=== PATIENT | female | born 1960 | race Caucasian/White ===

== ENCOUNTER → 2019-03-16 16:43 | Outpatient (CLI) | payer MEDICAID, SELFPAY ==
[2019-03-16 21:20] LABS: Amphetamine/Metha Screen,Urine Positive ng/mL (<1000); Barbiturates Screen,Urine Negative ng/mL (<200); Benzodiazepines Screen,Urine Negative ng/mL (<200); Cannabinoid Screen,Urine Negative ng/mL (<50); Cocaine Screen,Urine Negative ng/mL (<300); Methadone Screen,Urine Negative ng/mL (<300); Opiate Screen,Urine Positive ng/mL (<300); Phencyclidine Screen,Urine Negative ng/mL (<25)
== END ==
PROVIDERS: Visit Provider Emergency Medicine
DX: F90.9 Attention-deficit hyperactivity disorder, unspecified type (principal)
CPT/HCPCS: 80305

== ENCOUNTER → 2019-05-15 15:04 | Outpatient (CLI) | payer MEDICAID, SELFPAY ==
[2019-05-15 18:02] LABS: Amphetamine/Metha Screen,Urine Positive ng/mL (<1000); Barbiturates Screen,Urine Negative ng/mL (<200); Benzodiazepines Screen,Urine Negative ng/mL (<200); Cannabinoid Screen,Urine Negative ng/mL (<50); Cocaine Screen,Urine Negative ng/mL (<300); Methadone Screen,Urine Negative ng/mL (<300); Opiate Screen,Urine Negative ng/mL (<300); Phencyclidine Screen,Urine Negative ng/mL (<25)
== END ==
PROVIDERS: Visit Provider Emergency Medicine
DX: Z79.899 Other long term (current) drug therapy (principal)
CPT/HCPCS: 80305

== ENCOUNTER → 2019-09-02 13:34 | Outpatient (CLI) | payer MEDICAID, SELFPAY ==
[2019-09-02 14:03] LABS: Alanine Aminotransferase 22 U/L (12-78); Albumin Level 4.3 g/dl (3.5-5.0); Albumin/Globulin Ratio 1.2 (1.1-1.8); Alkaline Phosphatase 121 U/L (38-126); Aspartate Amino Transferase 32 U/L (14-36); Blood Urea Nitrogen 15 mg/dl (7-17); Calcium 9.5 mg/dl (8.4-10.2); Carbon Dioxide 32 mmol/L (22.0-30.0); Chloride 101 mmol/L (98-107); Estimated Glomerular Filt Rate 127 ml/min (>60); GFR (African American) 153 ML/MIN (>60); Globulin 3.7 g/dL (1.3-3.2); Glucose 124 mg/dl (74-100); HDL Cholesterol 42 mg/dl (40-60); Sodium 137 mmol/L (136-145); Triglycerides 288 mg/dl (30-150); VLDL Cholesterol 58 mg/dL (0-40)
[2019-09-02 14:05] LABS: Bilirubin,Total < 0.1 mg/dl (0.2-1.3)
[2019-09-02 14:22] LABS: Direct LDL Cholesterol 259.33 mg/dL (100-129); Free T4 (Free Thyroxine) 1.37 ng/dl (0.78-2.19)
[2019-09-02 14:25] LABS: Chol/HDL Ratio 8.4 (1-3.5); Cholesterol 351 mg/dl (140-200)
[2019-09-02 14:26] LABS: Basophils # 0.2 K/mm3 (0-0.2); Basophils % 1.6 % (0.1-2.0); Eosinophils # 0.4 K/mm3 (0.0-0.4); Eosinophils % 4.6 % (0.1-12.0); Hematocrit 47.8 % (37.0-47.0); Hemoglobin 14.6 g/dL (12.2-16.2); Lymphocytes # 2.6 K/mm3 (0.7-4.5); Lymphocytes % 28.5 % (10-50); Mean Corpuscular HGB Conc 30.5 g/dL (31.8-35.4); Mean Corpuscular Hemoglobin 30.4 pg (27.0-31.2); Mean Corpuscular Volume 99.8 fl (81-99); Mean Platelet Volume 10.2 fl (7.4-10.4); Monocytes # 0.6 K/mm3 (0.1-1.0); Monocytes % 6.2 % (1.7-9.3); Neutrophils # 5.4 K/mm3 (1.8-7.8); Neutrophils % 59.1 % (37.0-80.0); Platelet Count 291 K/mm3 (142-424); Red Blood Count 4.79 M/mm3 (4.20-5.40); Red Cell Distribution Width 13.5 % (11.5-17.5); White Blood Count 9.1 K/mm3 (4.8-10.8)
[2019-09-02 14:36] LABS: Thyroid Stimulating Hormone 3.81 uIU/mL (0.465-4.68)
[2019-09-03 11:39] LABS: Vitamin D 25 Hydroxy 25.4 ng/mL (30.0-100.0)
== END ==
PROVIDERS: Visit Provider Emergency Medicine
DX: E66.3 Overweight (principal); F90.9 Attention-deficit hyperactivity disorder, unspecified type; E55.9 Vitamin D deficiency, unspecified; Z79.899 Other long term (current) drug therapy
CPT/HCPCS: 80053; 80061; 82652; 84439; 84443; 85025

== ENCOUNTER → 2020-04-26 17:51 | Outpatient (CLI) | payer MEDICAID, SELFPAY | PROVIDERS: Visit Provider Emergency Medicine | DX: T81.41XA Infection following a procedure, superficial incisional surgical site, initial encounter (principal); M25.561 Pain in right knee | CPT/HCPCS: 87070; 87077; 87186; 87205 ==

== ENCOUNTER → 2020-06-22 18:38 | Outpatient (CLI) | payer MEDICAID, SELFPAY ==
[2020-06-22 19:33] LABS: Amphetamine/Metha Screen,Urine Positive ng/ml (<1000)
[2020-06-22 19:34] LABS: Barbiturates Screen,Urine Negative ng/ml (<200); Benzodiazepines Screen,Urine Negative ng/ml (<200)
[2020-06-22 19:35] LABS: Cannabinoid Screen,Urine Negative ng/ml (<50); Cocaine Screen,Urine Negative ng/ml (<300)
[2020-06-22 19:36] LABS: Methadone Screen,Urine Negative ng/ml (<300)
[2020-06-22 19:37] LABS: Opiate Screen,Urine Negative ng/ml (<300)
[2020-06-22 19:39] LABS: Phencyclidine Screen,Urine Negative ng/ml (<25)
== END ==
PROVIDERS: Visit Provider Emergency Medicine
DX: Z79.899 Other long term (current) drug therapy (principal)
CPT/HCPCS: 80305

== ENCOUNTER → 2020-08-24 13:19 | Outpatient (CLI) | payer MEDICAID, SELFPAY ==
[2020-08-24 14:21] LABS: Amphetamine/Metha Screen,Urine Positive ng/ml (<1000)
[2020-08-24 14:22] LABS: Barbiturates Screen,Urine Negative ng/ml (<200)
[2020-08-24 14:23] LABS: Benzodiazepines Screen,Urine Negative ng/ml (<200)
[2020-08-24 14:24] LABS: Cannabinoid Screen,Urine Negative ng/ml (<50)
[2020-08-24 14:25] LABS: Cocaine Screen,Urine Negative ng/ml (<300); Methadone Screen,Urine Negative ng/ml (<300)
[2020-08-24 14:26] LABS: Opiate Screen,Urine Negative ng/ml (<300)
[2020-08-24 14:27] LABS: Phencyclidine Screen,Urine Negative ng/ml (<25)
== END ==
PROVIDERS: Visit Provider Emergency Medicine
DX: Z79.899 Other long term (current) drug therapy (principal); F90.9 Attention-deficit hyperactivity disorder, unspecified type
CPT/HCPCS: 80305

== ENCOUNTER → 2020-10-21 17:37 | Outpatient (CLI) | payer MEDICAID, SELFPAY ==
[2020-10-21 18:30] LABS: Amphetamine/Metha Screen,Urine Positive ng/ml (<1000)
[2020-10-21 18:31] LABS: Barbiturates Screen,Urine Negative ng/ml (<200)
[2020-10-21 18:32] LABS: Benzodiazepines Screen,Urine Negative ng/ml (<200); Cannabinoid Screen,Urine Negative ng/ml (<50)
[2020-10-21 18:33] LABS: Cocaine Screen,Urine Negative ng/ml (<300)
[2020-10-21 18:34] LABS: Methadone Screen,Urine Negative ng/ml (<300); Opiate Screen,Urine Negative ng/ml (<300)
[2020-10-21 18:35] LABS: Phencyclidine Screen,Urine Negative ng/ml (<25)
== END ==
PROVIDERS: Visit Provider Emergency Medicine
DX: Z79.899 Other long term (current) drug therapy (principal)
CPT/HCPCS: 80305

== ENCOUNTER → 2020-12-20 17:06 | Outpatient (CLI) | payer MEDICAID, SELFPAY ==
[2020-12-20 18:49] LABS: Alanine Aminotransferase 24 U/L (12-78); Albumin Level 4.2 g/dl (3.5-5.0); Alkaline Phosphatase 118 U/L (38-126); Anion Gap 15.6 mEq/L (5-15); Aspartate Amino Transferase 37 U/L (14-36); Bilirubin,Total 0.5 mg/dl (0.2-1.3); Blood Urea Nitrogen 15 mg/dl (7-17); Calcium 9.1 mg/dl (8.4-10.2); Carbon Dioxide 25 mmol/L (22.0-30.0); Chloride 103 mmol/L (98-107); Chol/HDL Ratio 6.6 (1-3.5); Cholesterol 258 mg/dl (140-200); Estimated Glomerular Filt Rate 163 ml/min (>60); GFR (African American) 197 ML/MIN (>60); Globulin 4.2 g/dL (1.3-3.2); Glucose 114 mg/dl (74-100); HDL Cholesterol 39 mg/dl (40-60); Potassium 4.6 mmoL/L (3.5-5.1); Sodium 139 mmol/L (136-145); Total Protein,Serum 8.4 g/dl (6.3-8.2); Triglycerides 235 mg/dl (30-150); VLDL Cholesterol 47 mg/dL (0-40)
[2020-12-20 19:01] LABS: Direct LDL Cholesterol 162.59 mg/dL (100-129)
[2020-12-20 19:06] LABS: 25-OH Vitamin D, Total 58.7 ng/mL (30-100)
[2020-12-20 19:08] LABS: Free T4 (Free Thyroxine) 1.77 ng/dl (0.78-2.19)
[2020-12-20 19:20] LABS: Thyroid Stimulating Hormone 0.75 uIU/mL (0.465-4.68)
[2020-12-20 20:32] LABS: Amphetamine/Metha Screen,Urine Positive ng/ml (<1000)
[2020-12-20 20:33] LABS: Barbiturates Screen,Urine Negative ng/ml (<200)
[2020-12-20 20:35] LABS: Benzodiazepines Screen,Urine Negative ng/ml (<200); Cannabinoid Screen,Urine Positive ng/ml (<50)
[2020-12-20 20:36] LABS: Cocaine Screen,Urine Negative ng/ml (<300)
[2020-12-20 20:37] LABS: Methadone Screen,Urine Negative ng/ml (<300); Opiate Screen,Urine Negative ng/ml (<300)
[2020-12-20 20:38] LABS: Phencyclidine Screen,Urine Negative ng/ml (<25)
== END ==
PROVIDERS: Visit Provider Emergency Medicine
DX: F90.9 Attention-deficit hyperactivity disorder, unspecified type (principal); E55.9 Vitamin D deficiency, unspecified; E66.3 Overweight; E78.5 Hyperlipidemia, unspecified; Z79.899 Other long term (current) drug therapy
CPT/HCPCS: 80053; 80061; 80305; 82306; 84439; 84443

== ENCOUNTER → 2021-03-06 14:56 | Outpatient (CLI) | payer MEDICAID, SELFPAY ==
[2021-03-06 19:43] LABS: Amphetamine/Metha Screen,Urine Positive ng/ml (<1000)
[2021-03-06 19:44] LABS: Barbiturates Screen,Urine Negative ng/ml (<200); Benzodiazepines Screen,Urine Negative ng/ml (<200)
[2021-03-06 19:45] LABS: Cannabinoid Screen,Urine Positive ng/ml (<50)
[2021-03-06 19:46] LABS: Cocaine Screen,Urine Negative ng/ml (<300); Methadone Screen,Urine Negative ng/ml (<300)
[2021-03-06 19:47] LABS: Opiate Screen,Urine Negative ng/ml (<300)
[2021-03-06 19:48] LABS: Phencyclidine Screen,Urine Negative ng/ml (<25)
== END ==
PROVIDERS: Visit Provider Emergency Medicine
DX: F90.9 Attention-deficit hyperactivity disorder, unspecified type (principal)
CPT/HCPCS: 80305

== ENCOUNTER → 2021-05-05 14:18 | Outpatient (CLI) | payer MEDICAID, SELFPAY ==
[2021-05-05 16:34] LABS: Amphetamine/Metha Screen,Urine Positive ng/ml (<1000); Barbiturates Screen,Urine Negative ng/ml (<200)
[2021-05-05 16:36] LABS: Benzodiazepines Screen,Urine Negative ng/ml (<200)
[2021-05-05 16:37] LABS: Cannabinoid Screen,Urine Positive ng/ml (<50); Cocaine Screen,Urine Negative ng/ml (<300)
[2021-05-05 16:38] LABS: Methadone Screen,Urine Negative ng/ml (<300)
[2021-05-05 16:39] LABS: Opiate Screen,Urine Positive ng/ml (<300); Phencyclidine Screen,Urine Negative ng/ml (<25)
== END ==
PROVIDERS: Visit Provider Emergency Medicine
DX: Z79.899 Other long term (current) drug therapy (principal)
CPT/HCPCS: 80305

== ENCOUNTER → 2021-06-30 15:10 | Outpatient (CLI) | payer MEDICAID, SELFPAY ==
[2021-06-30 15:33] LABS: Amphetamine/Metha Screen,Urine Positive ng/ml (<1000)
[2021-06-30 15:34] LABS: Barbiturates Screen,Urine Negative ng/ml (<200)
[2021-06-30 15:35] LABS: Benzodiazepines Screen,Urine Negative ng/ml (<200); Cannabinoid Screen,Urine Positive ng/ml (<50)
[2021-06-30 15:36] LABS: Cocaine Screen,Urine Negative ng/ml (<300)
[2021-06-30 15:37] LABS: Methadone Screen,Urine Negative ng/ml (<300); Opiate Screen,Urine Positive ng/ml (<300)
[2021-06-30 15:49] LABS: Phencyclidine Screen,Urine Negative ng/ml (<25)
== END ==
PROVIDERS: Visit Provider Emergency Medicine
DX: Z79.899 Other long term (current) drug therapy (principal)
CPT/HCPCS: 80305

== ENCOUNTER → 2021-08-28 11:01 | Outpatient (CLI) | payer MEDICAID, SELFPAY ==
[2021-08-28 14:50] LABS: Amphetamine/Metha Screen,Urine Negative ng/ml (<1000)
[2021-08-28 14:51] LABS: Barbiturates Screen,Urine Negative ng/ml (<200); Benzodiazepines Screen,Urine Negative ng/ml (<200)
[2021-08-28 14:52] LABS: Cannabinoid Screen,Urine Positive ng/ml (<50); Cocaine Screen,Urine Negative ng/ml (<300)
[2021-08-28 14:53] LABS: Methadone Screen,Urine Negative ng/ml (<300)
[2021-08-28 14:54] LABS: Opiate Screen,Urine Positive ng/ml (<300); Phencyclidine Screen,Urine Negative ng/ml (<25)
== END ==
PROVIDERS: PCP Emergency Medicine; Visit Provider Emergency Medicine
DX: Z79.899 Other long term (current) drug therapy (principal)
CPT/HCPCS: 80305

== ENCOUNTER → 2021-10-18 13:53 | Outpatient (CLI) | payer MEDICAID, SELFPAY ==
[2021-10-18 14:02] LABS: Amphetamine/Metha Screen,Urine Positive ng/ml (<1000); Barbiturates Screen,Urine Negative ng/ml (<200)
[2021-10-18 14:03] LABS: Benzodiazepines Screen,Urine Negative ng/ml (<200)
[2021-10-18 14:04] LABS: Cannabinoid Screen,Urine Positive ng/ml (<50); Methadone Screen,Urine Negative ng/ml (<300)
[2021-10-18 14:05] LABS: Cocaine Screen,Urine Negative ng/ml (<300)
[2021-10-18 14:06] LABS: Opiate Screen,Urine Positive ng/ml (<300); Phencyclidine Screen,Urine Negative ng/ml (<25)
[2021-10-19 22:08] LABS: Neisseria gonorrhoeae, NAA Negative (Negative)
== END ==
PROVIDERS: PCP Emergency Medicine; Visit Provider Emergency Medicine
DX: Z79.899 Other long term (current) drug therapy (principal); L29.8 Other pruritus
CPT/HCPCS: 80305; 87491; 87591

== ENCOUNTER → 2021-12-15 14:30 | Outpatient (CLI) | payer MEDICARE, MEDICAID, SELFPAY ==
[2021-12-15 19:13] LABS: Amphetamine/Metha Screen,Urine Positive ng/ml (<1000)
[2021-12-15 19:15] LABS: Barbiturates Screen,Urine Negative ng/ml (<200)
[2021-12-15 19:16] LABS: Benzodiazepines Screen,Urine Negative ng/ml (<200); Cannabinoid Screen,Urine Positive ng/ml (<50)
[2021-12-15 19:18] LABS: Cocaine Screen,Urine Negative ng/ml (<300); Methadone Screen,Urine Negative ng/ml (<300)
[2021-12-15 19:19] LABS: Opiate Screen,Urine Positive ng/ml (<300)
[2021-12-15 19:25] LABS: Phencyclidine Screen,Urine Negative ng/ml (<25)
== END ==
PROVIDERS: PCP Emergency Medicine; Visit Provider Emergency Medicine
DX: Z79.899 Other long term (current) drug therapy (principal)
CPT/HCPCS: 80305

== ENCOUNTER 2022-02-09 01:04 | Emergency (ER) | payer MEDICARE, MEDICAID, SELFPAY ==
[2022-02-09 01:05] VITALS: BP 160/93; PULSE 94; RESP 18; TEMP 36.8; O2SAT 95; BMI 26.1
--- NOTE | 2022-02-09 01:35 | HMH.EDDENT ---
Discharge Plan Disposition Patient Disposition: Home, Self-Care Prescriptions Prescriptions: New cephalexin [cephalexin] 500 mg capsule 500 mg PO TID Qty: 30 0RF No Action albuterol sulfate 90 mcg/actuation HFA aerosol inhaler INHALATION levothyroxine 137 mcg tablet PO DAILY atorvastatin 10 mg tablet See Rx Instructions .ROUTE .COMPLEX Qty: 90 2RF Dose Instruction: TAKE 1 TABLET BY MOUTH AT BEDTIME Rx Instructions: TAKE 1 TABLET BY MOUTH AT BEDTIME cholecalciferol (vitamin D3) 25 mcg (1,000 unit) capsule 1,000 unit PO DAILY Qty: 90 1RF ergocalciferol (vitamin D2) 1,250 mcg (50,000 unit) capsule See Rx Instructions .ROUTE .COMPLEX Qty: 8 0RF Dose Instruction: TAKE 1 CAPSULE BY MOUTH ONCE WEEKLY Rx Instructions: TAKE 1 CAPSULE BY MOUTH ONCE WEEKLY lisinopril 10 mg tablet See Rx Instructions .ROUTE .COMPLEX Qty: 30 1RF Dose Instruction: TAKE 1 TABLET BY MOUTH EVERY DAY Rx Instructions: TAKE 1 TABLET BY MOUTH EVERY DAY metoprolol succinate 25 mg tablet extended release 24 hr See Rx Instructions .ROUTE .COMPLEX Qty: 90 3RF Dose Instruction: TAKE 1 TABLET BY MOUTH EVERY DAY Rx Instructions: TAKE 1 TABLET BY MOUTH EVERY DAY nicotine 21 mg/24 hr patch 24 hour See Rx Instructions .ROUTE .COMPLEX Qty: 28 0RF Dose Instruction: APPLY 1 PATCH TO SKIN DAILY (REMOVE OLD PATCH) Rx Instructions: APPLY 1 PATCH TO SKIN DAILY (REMOVE OLD PATCH) trazodone 100 mg tablet See Rx Instructions .ROUTE .COMPLEX Qty: 180 0RF Dose Instruction: TAKE 2 TABLETS BY MOUTH AT BEDTIME Rx Instructions: TAKE 2 TABLETS BY MOUTH AT BEDTIME Anoro Ellipta 62.5-25 mcg/actuation blister with device See Rx Instructions .ROUTE .COMPLEX Qty: 60 0RF Dose Instruction: TAKE 1 INHALATION BY MOUTH ONCE DAILY Rx Instructions: TAKE 1 INHALATION BY MOUTH ONCE DAILY gabapentin 100 mg capsule 100 mg PO HS Qty: 30 1RF dextroamphetamine-amphetamine [Adderall] 20 mg tablet 20 mg PO TID Qty: 90 0RF Rx Instructions: administer doses at least 4-6 hours apart oxycodone 10 mg tablet 10 mg PO QID Qty: 120 0RF Referrals Follow up/Referrals: Campos Harris MD [Primary Care Provider] - See instructions Clinical Impressions Clinical Impression: Pain, dental, Dental infection Instructions Patient Instructions: DI for Dental Pain Discharge ED Provider: Campos Harris Dental HPI General Chief complaint: Dental/Oral Stated complaint: Toothache Time Seen by Provider: 02/09/22 01:35 Mode of Arrival: Ambulatory Source of Information: Patient and Medical Record Limitations: No Limitations Description of Symptoms (Recalled from ER Triage Doc. by RN): Pt c/o left lower tooth abcess causing pain that radiates into her jaw and ear. Pt endorses nausea. She denies fevers, vomiting, diarrhea, aches. History of Present Illness HPI Narrative: acute lt lower dental pain with swelling MD Complaint: tooth pain Onset (ago): day(s) Severity: moderate Relieving factors: NSAIDs and prescription analgesics Exacerbating factors: chewing and drinking fluids Context: history of dental caries Associated symptoms: gum swelling Treatment prior to arrival: oral analgesic Related Data Home Medications Medication Instructions Recorded Confirmed albuterol sulfate 90 mcg/actuation inhalation 12/30/19 12/15/21 aerosol inhaler levothyroxine 137 mcg tablet mcg PO DAILY 04/26/20 12/15/21 Previous Rx's Medication Instructions Recorded atorvastatin 10 mg tablet See Rx Instructions .Route 12/26/21 .COMPLEX #90 tabs cholecalciferol (vitamin D3) 25 1,000 unit PO DAILY #90 caps 12/26/21 mcg (1,000 unit) capsule dextroamphetamine-amphetamine 20 20 mg PO TID #90 tabs 12/26/21 mg tablet (Adderall) ergocalciferol (vitamin D2) 1,250 See Rx Instructions .Route 12/26/21 mcg (50,000 unit) capsule .COMPLEX #8
[2022-02-09 02:18] VITALS: BP 141/84; PULSE 85; RESP 18; TEMP 36.6; O2SAT 94
== END 2022-02-09 02:23 | disposition home or self-care (01) ==
PROVIDERS: Emergency Provider Emergency Medicine; PCP Emergency Medicine
DX: K04.7 Periapical abscess without sinus (principal)
CPT/HCPCS: 96365; 96375; 99284; J0696

== ENCOUNTER → 2022-02-13 14:25 | Outpatient (CLI) | payer MEDICARE, MEDICAID, SELFPAY ==
[2022-02-13 19:03] LABS: Barbiturates Screen,Urine Negative ng/ml (<200)
[2022-02-13 19:04] LABS: Benzodiazepines Screen,Urine Negative ng/ml (<200)
[2022-02-13 19:05] LABS: Cannabinoid Screen,Urine Positive ng/ml (<50); Cocaine Screen,Urine Negative ng/ml (<300)
[2022-02-13 19:06] LABS: Methadone Screen,Urine Negative ng/ml (<300)
[2022-02-13 19:07] LABS: Opiate Screen,Urine Positive ng/ml (<300); Phencyclidine Screen,Urine Negative ng/ml (<25)
[2022-02-13 19:49] LABS: Amphetamine/Metha Screen,Urine Positive ng/ml (<1000)
== END ==
PROVIDERS: PCP Emergency Medicine; Visit Provider Emergency Medicine
DX: Z79.899 Other long term (current) drug therapy (principal)
CPT/HCPCS: 80305

== ENCOUNTER → 2022-04-04 17:07 | Outpatient (CLI) | payer MEDICARE, MEDICAID, SELFPAY ==
[2022-04-04 19:01] LABS: Amphetamine/Metha Screen,Urine Positive ng/ml (<1000); Barbiturates Screen,Urine Negative ng/ml (<200)
[2022-04-04 19:02] LABS: Benzodiazepines Screen,Urine Negative ng/ml (<200); Cannabinoid Screen,Urine Positive ng/ml (<50)
[2022-04-04 19:03] LABS: Cocaine Screen,Urine Negative ng/ml (<300)
[2022-04-04 19:04] LABS: Methadone Screen,Urine Negative ng/ml (<300); Opiate Screen,Urine Positive ng/ml (<300)
[2022-04-04 19:06] LABS: Phencyclidine Screen,Urine Negative ng/ml (<25)
== END ==
PROVIDERS: PCP Emergency Medicine; Visit Provider Emergency Medicine
DX: Z79.899 Other long term (current) drug therapy (principal)
CPT/HCPCS: 80305

== ENCOUNTER → 2022-05-30 16:50 | Outpatient (CLI) | payer MEDICARE, MEDICAID, SELFPAY ==
[2022-05-30 18:40] LABS: Amphetamine/Metha Screen,Urine Positive ng/ml (<1000)
[2022-05-30 18:41] LABS: Barbiturates Screen,Urine Negative ng/ml (<200); Benzodiazepines Screen,Urine Negative ng/ml (<200)
[2022-05-30 18:42] LABS: Cannabinoid Screen,Urine Negative ng/ml (<50); Cocaine Screen,Urine Negative ng/ml (<300)
[2022-05-30 18:43] LABS: Methadone Screen,Urine Negative ng/ml (<300)
[2022-05-30 18:44] LABS: Opiate Screen,Urine Positive ng/ml (<300); Phencyclidine Screen,Urine Negative ng/ml (<25)
== END ==
PROVIDERS: PCP Emergency Medicine; Visit Provider Emergency Medicine
DX: Z79.899 Other long term (current) drug therapy (principal)
CPT/HCPCS: 80305

== ENCOUNTER → 2022-08-06 23:08 | Outpatient (CLI) | payer MEDICARE, MEDICAID, SELFPAY ==
[2022-08-06 19:46] LABS: Benzodiazepines Screen,Urine Negative ng/ml (<200)
[2022-08-06 19:47] LABS: Amphetamine/Metha Screen,Urine Positive ng/ml (<1000); Barbiturates Screen,Urine Negative ng/ml (<200)
[2022-08-06 19:48] LABS: Cannabinoid Screen,Urine Negative ng/ml (<50)
[2022-08-06 19:49] LABS: Cocaine Screen,Urine Negative ng/ml (<300); Methadone Screen,Urine Negative ng/ml (<300)
[2022-08-06 19:50] LABS: Opiate Screen,Urine Positive ng/ml (<300); Phencyclidine Screen,Urine Negative ng/ml (<25)
== END ==
PROVIDERS: PCP Emergency Medicine; Visit Provider Emergency Medicine
DX: Z79.899 Other long term (current) drug therapy (principal)
CPT/HCPCS: 80305

== ENCOUNTER → 2022-10-02 18:54 | Outpatient (CLI) | payer MEDICARE, MEDICAID, SELFPAY ==
[2022-10-02 20:08] LABS: Basophils # 0.1 K/mm3 (0-0.2); Basophils % 0.5 % (0.1-2.0); Eosinophils # 0.2 K/mm3 (0.0-0.4); Eosinophils % 1.9 % (0.1-12.0); Hematocrit 49.1 % (37.0-47.0); Hemoglobin 15.8 g/dL (12.2-16.2); Lymphocytes # 3.3 K/mm3 (0.7-4.5); Mean Corpuscular HGB Conc 32.2 g/dL (31.8-35.4); Mean Corpuscular Hemoglobin 30.5 pg (27.0-31.2); Mean Corpuscular Volume 94.6 fl (81-99); Mean Platelet Volume 10.9 fl (7.4-10.4); Monocytes # 0.6 K/mm3 (0.1-1.0); Monocytes % 6.1 % (1.7-9.3); Neutrophils # 5.1 K/mm3 (1.8-7.8); Neutrophils % 55.5 % (37.0-80.0); Platelet Count 260 K/mm3 (142-424); Red Blood Count 5.19 M/mm3 (4.20-5.40); White Blood Count 9.2 K/mm3 (4.8-10.8)
[2022-10-02 20:28] LABS: Alanine Aminotransferase 24 U/L (12-78); Albumin Level 4.3 g/dl (3.5-5.0); Albumin/Globulin Ratio 1.2 (1.1-1.8); Alkaline Phosphatase 102 U/L (38-126); Anion Gap 14.2 mEq/L (5-15); Aspartate Amino Transferase 34 U/L (14-36); Bilirubin,Total 0.4 mg/dl (0.2-1.3); Calcium 9.2 mg/dl (8.4-10.2); Carbon Dioxide 32 mmol/L (22.0-30.0); Chloride 98 mmol/L (98-107); Cholesterol 244 mg/dl (140-200); Globulin 3.5 g/dL (1.3-3.2); Glucose 111 mg/dl (74-100); HDL Cholesterol 35 mg/dl (40-60); Potassium 4.2 mmoL/L (3.5-5.1); Sodium 140 mmol/L (136-145); Total Protein,Serum 7.8 g/dl (6.3-8.2); Triglycerides 168 mg/dl (30-150); VLDL Cholesterol 34 mg/dL (0-40)
[2022-10-02 20:32] LABS: Blood Urea Nitrogen 12 mg/dl (7-17); Estimated Glomerular Filt Rate 125 ml/min (>60); GFR (African American) 151 ML/MIN (>60)
[2022-10-02 20:39] LABS: Direct LDL Cholesterol 159.21 mg/dL (100-129)
[2022-10-02 20:44] LABS: Free T4 (Free Thyroxine) 1.94 ng/dl (0.78-2.19)
[2022-10-02 20:46] LABS: 25-OH Vitamin D, Total 60.6 ng/mL (30-100)
[2022-10-02 21:01] LABS: Hemoglobin A1C 5.9 % (4.0-6.0)
[2022-10-02 21:09] LABS: Amphetamine/Metha Screen,Urine Positive ng/ml (<1000)
[2022-10-02 22:50] LABS: Barbiturates Screen,Urine Negative ng/ml (<200)
[2022-10-02 22:51] LABS: Benzodiazepines Screen,Urine Negative ng/ml (<200); Cannabinoid Screen,Urine Negative ng/ml (<50)
[2022-10-02 22:52] LABS: Cocaine Screen,Urine Negative ng/ml (<300)
[2022-10-02 22:53] LABS: Methadone Screen,Urine Negative ng/ml (<300); Opiate Screen,Urine Positive ng/ml (<300)
[2022-10-02 22:54] LABS: Phencyclidine Screen,Urine Negative ng/ml (<25)
[2022-10-04 22:18] LABS: Neisseria gonorrhoeae, NAA Negative (Negative)
== END ==
PROVIDERS: PCP Emergency Medicine; Visit Provider Emergency Medicine
DX: E55.9 Vitamin D deficiency, unspecified (principal); R82.90 Unspecified abnormal findings in urine; E03.9 Hypothyroidism, unspecified; Z79.899 Other long term (current) drug therapy
CPT/HCPCS: 80053; 80061; 80305; 82306; 83036; 84439; 84443; 85025; 87086; 87491; 87591

== ENCOUNTER → 2022-11-21 23:21 | Outpatient (CLI) | payer MEDICARE, MEDICAID, SELFPAY ==
[2022-11-21 22:05] LABS: Amphetamine/Metha Screen,Urine Positive ng/ml (<1000)
[2022-11-21 22:06] LABS: Barbiturates Screen,Urine Negative ng/ml (<200); Benzodiazepines Screen,Urine Negative ng/ml (<200)
[2022-11-21 22:07] LABS: Cannabinoid Screen,Urine Negative ng/ml (<50); Cocaine Screen,Urine Negative ng/ml (<300)
[2022-11-21 22:08] LABS: Methadone Screen,Urine Negative ng/ml (<300)
[2022-11-21 22:09] LABS: Opiate Screen,Urine Positive ng/ml (<300); Phencyclidine Screen,Urine Negative ng/ml (<25)
== END ==
LOC: LAB.DROPOF 23:21
PROVIDERS: PCP Emergency Medicine; Visit Provider Emergency Medicine
DX: Z79.899 Other long term (current) drug therapy (principal)
CPT/HCPCS: 80305

== ENCOUNTER → 2023-01-10 09:04 | Outpatient (CLI) | payer MEDICARE, MEDICAID, SELFPAY ==
--- NOTE | 2023-01-10 09:04 | US_ITS ---
FINAL REPORT TECHNIQUE: Sonographic images of the right upper quadrant were obtained. CLINICAL HISTORY: abdominal pain COMPARISON: None FINDINGS: PANCREAS: Not well visualized secondary to overlying bowel gas. LIVER: Homogeneous. No focal hepatic lesion. No intrahepatic biliary ductal dilatation. GALLBLADDER: No gallstones. No gallbladder wall thickening or pericholecystic fluid. COMMON DUCT: 8 mm. Mildly dilated for age. RIGHT KIDNEY: The right kidney measures 10.6 cm. There is no hydronephrosis, mass, or stone. FREE FLUID: None. IMPRESSION: Mild common duct dilatation. Consider MRCP for further evaluation. Reviewed, Interpreted and Dictated by Jaylyn Aguilar MD Transcribed by Eugenia Keith Authenticated and [facility]
== END ==
PROVIDERS: PCP Emergency Medicine; Visit Provider Emergency Medicine
DX: R10.9 Unspecified abdominal pain (principal)
CPT/HCPCS: 76705

== ENCOUNTER → 2023-01-18 09:32 | Outpatient (CLI) | payer MEDICARE, MEDICAID, SELFPAY ==
[2023-01-18 19:17] LABS: Barbiturates Screen,Urine Negative ng/ml (<200)
[2023-01-18 19:18] LABS: Benzodiazepines Screen,Urine Negative ng/ml (<200)
[2023-01-18 19:19] LABS: Cannabinoid Screen,Urine Negative ng/ml (<50)
[2023-01-18 19:20] LABS: Cocaine Screen,Urine Negative ng/ml (<300)
[2023-01-18 19:22] LABS: Methadone Screen,Urine Negative ng/ml (<300); Opiate Screen,Urine Positive ng/ml (<300)
[2023-01-18 19:23] LABS: Phencyclidine Screen,Urine Negative ng/ml (<25)
[2023-01-18 20:05] LABS: Amphetamine/Metha Screen,Urine Positive ng/ml (<1000)
== END ==
PROVIDERS: Emergency Medicine; PCP Physician Assistant; Visit Provider Physician Assistant
DX: R10.9 Unspecified abdominal pain (principal); Z79.899 Other long term (current) drug therapy
CPT/HCPCS: 80305

== ENCOUNTER → 2023-03-18 23:49 | Outpatient (CLI) | payer MEDICARE, MEDICAID, SELFPAY ==
[2023-03-18 18:37] LABS: Basophils # 0.1 K/mm3 (0-0.2); Basophils % 0.6 % (0.1-2.0); Eosinophils # 0.3 K/mm3 (0.0-0.4); Eosinophils % 3.6 % (0.1-12.0); Hematocrit 48.6 % (37.0-47.0); Hemoglobin 15.7 g/dL (12.2-16.2); Lymphocytes # 2.9 K/mm3 (0.7-4.5); Lymphocytes % 31.7 % (10-50); Mean Corpuscular HGB Conc 32.4 g/dL (31.8-35.4); Mean Corpuscular Hemoglobin 31.8 pg (27.0-31.2); Mean Platelet Volume 10.9 fl (7.4-10.4); Monocytes # 0.6 K/mm3 (0.1-1.0); Monocytes % 6.6 % (1.7-9.3); Neutrophils # 5.2 K/mm3 (1.8-7.8); Neutrophils % 57.6 % (37.0-80.0); Platelet Count 277 K/mm3 (142-424); Red Blood Count 4.96 M/mm3 (4.20-5.40); White Blood Count 9.1 K/mm3 (4.8-10.8)
[2023-03-18 19:14] LABS: Alanine Aminotransferase 29 U/L (12-78); Albumin/Globulin Ratio 1.1 (1.1-1.8); Alkaline Phosphatase 119 U/L (38-126); Aspartate Amino Transferase 32 U/L (14-36); Bilirubin,Total 0.3 mg/dl (0.2-1.3); Blood Urea Nitrogen 12 mg/dl (7-17); Calcium 8.7 mg/dl (8.4-10.2); Carbon Dioxide 29 mmol/L (22.0-30.0); Chloride 104 mmol/L (98-107); Chol/HDL Ratio 6.8 (1-3.5); Cholesterol 224 mg/dl (140-200); Estimated Glomerular Filt Rate 125 ml/min (>60); GFR (African American) 151 ML/MIN (>60); Globulin 3.5 g/dL (1.3-3.2); Glucose 118 mg/dl (74-100); HDL Cholesterol 33 mg/dl (40-60); Sodium 138 mmol/L (136-145); Total Protein,Serum 7.5 g/dl (6.3-8.2); Triglycerides 201 mg/dl (30-150); VLDL Cholesterol 40 mg/dL (0-40)
[2023-03-18 19:25] LABS: Direct LDL Cholesterol 149.73 mg/dL (100-129)
[2023-03-18 19:44] LABS: Thyroid Stimulating Hormone 0.15 uIU/mL (0.465-4.68)
[2023-03-18 19:58] LABS: Creatinine,Urine Random 60 mg/dL (Not Estab.)
[2023-03-18 20:02] LABS: Benzodiazepines Screen,Urine Negative ng/ml (<200)
[2023-03-18 20:03] LABS: Barbiturates Screen,Urine Negative ng/ml (<200)
[2023-03-18 20:05] LABS: Cannabinoid Screen,Urine Negative ng/ml (<50); Cocaine Screen,Urine Negative ng/ml (<300); Microalbumin < 6.000 mg/L (0-16.7)
[2023-03-18 20:06] LABS: Methadone Screen,Urine Negative ng/ml (<300)
[2023-03-18 20:07] LABS: Opiate Screen,Urine Positive ng/ml (<300)
[2023-03-18 20:08] LABS: Phencyclidine Screen,Urine Negative ng/ml (<25)
[2023-03-18 20:11] LABS: Anion Gap 9.3 mEq/L (5-15); Potassium 4.3 mmoL/L (3.5-5.1)
[2023-03-18 20:21] LABS: Amphetamine/Metha Screen,Urine Positive ng/ml (<1000)
== END ==
PROVIDERS: PCP Internal Medicine; Visit Provider Internal Medicine
DX: E03.9 Hypothyroidism, unspecified (principal); E55.9 Vitamin D deficiency, unspecified; E78.5 Hyperlipidemia, unspecified; Z79.899 Other long term (current) drug therapy
CPT/HCPCS: 80053; 80061; 80305; 82043; 82570; 84443; 85025

== ENCOUNTER → 2023-04-01 13:03 | Outpatient (CLI) | payer MEDICARE, SELFPAY ==
[2023-04-01 21:38] LABS: Barbiturates Screen,Urine Negative ng/ml (<200); Cannabinoid Screen,Urine Negative ng/ml (<50)
[2023-04-01 21:39] LABS: Benzodiazepines Screen,Urine Negative ng/ml (<200)
[2023-04-01 21:40] LABS: Methadone Screen,Urine Negative ng/ml (<300)
[2023-04-01 21:45] LABS: Opiate Screen,Urine Positive ng/ml (<300)
[2023-04-01 21:46] LABS: Cocaine Screen,Urine Negative ng/ml (<300)
[2023-04-01 21:47] LABS: Phencyclidine Screen,Urine Negative ng/ml (<25)
[2023-04-01 21:49] LABS: Amphetamine/Metha Screen,Urine Positive ng/ml (<1000)
== END ==
PROVIDERS: PCP Internal Medicine; Visit Provider Internal Medicine
DX: Z79.899 Other long term (current) drug therapy (principal)
CPT/HCPCS: 80305

== ENCOUNTER 2023-04-16 13:48 | Outpatient (CLI) | payer MEDICARE, SELFPAY ==
[2023-04-16 18:03] LABS: Amphetamine/Metha Screen,Urine Positive ng/ml (<1000); Barbiturates Screen,Urine Negative ng/ml (<200); Benzodiazepines Screen,Urine Negative ng/ml (<200); Cocaine Screen,Urine Negative ng/ml (<300); Methadone Screen,Urine Negative ng/ml (<300); Opiate Screen,Urine Positive ng/ml (<300); Phencyclidine Screen,Urine Negative ng/ml (<25)
[2023-04-16 18:11] LABS: Cannabinoid Screen,Urine Negative ng/ml (<50)
== END 2023-04-16 23:59 ==
LOC: LAB.DROPOF 13:49
PROVIDERS: PCP Internal Medicine; Visit Provider Nurse Practitioner Family
DX: Z79.899 Other long term (current) drug therapy (principal)
CPT/HCPCS: 80307

== ENCOUNTER 2023-06-11 18:33 | Outpatient (CLI) | payer MEDICARE, SELFPAY ==
[2023-06-11 19:26] LABS: Chol/HDL Ratio 6.3 (1-3.5); Cholesterol 227 mg/dl (140-200); HDL Cholesterol 36 mg/dl (40-60); Triglycerides 107 mg/dl (30-150); VLDL Cholesterol 21 mg/dL (0-40)
[2023-06-11 19:37] LABS: Direct LDL Cholesterol 144.35 mg/dL (100-129)
[2023-06-11 19:59] LABS: Thyroid Stimulating Hormone 0.89 uIU/mL (0.465-4.68)
== END 2023-06-11 23:59 ==
LOC: LAB.DROPOF 18:35
PROVIDERS: PCP Internal Medicine; Visit Provider Internal Medicine
DX: E05.90 Thyrotoxicosis, unspecified without thyrotoxic crisis or storm (principal); Z79.899 Other long term (current) drug therapy
CPT/HCPCS: 80061; 84443